=== PATIENT | male | born 1970 | race Asian ===

== ENCOUNTER 2019-03-25 07:33 | Day surgery (SDC) | payer OTHER, BC ==
[~2019-03-25] VITALS: Ht 177.8 cm; Wt 77.1 kg
[2019-03-25] MEDS ORDERED: fentaNYL 0.05 MG/ML VIAL ONE (10:30)
[2019-03-25] MEDS ORDERED: MIDAZOLAM 2 MG/2 ML VIAL ONE (10:30)
[2019-03-25] MEDS ORDERED: LIDOCAINE 2% 100 MG/5 ML UJET TP ONE (10:31)
[2019-03-25] MEDS ORDERED: MIDAZOLAM 2 MG/2 ML VIAL IVP ONE (11:00)
[2019-03-25] MEDS ORDERED: fentaNYL 0.05 MG/ML VIAL IVP ONE (11:02)
== END 2019-03-25 12:12 | disposition home or self-care (01) ==
LOC: MOR 07:33 → MMU 07:38 → MOR 12:12
PROVIDERS: ATTEND Internal Medicine Gastroenterology
DX: D64.9 Anemia, unspecified (principal); K29.71 Gastritis, unspecified, with bleeding; K57.30 Diverticulosis of large intestine without perforation or abscess without bleeding; K29.80 Duodenitis without bleeding; K20.9 Esophagitis, unspecified; K70.9 Alcoholic liver disease, unspecified; K86.0 Alcohol-induced chronic pancreatitis; L40.9 Psoriasis, unspecified; Z79.82 Long term (current) use of aspirin; Z79.899 Other long term (current) drug therapy
CPT/HCPCS: 36415; 43239; 45378; 86677; J2250; J3010